=== PATIENT | female | born 1945 | race Two or more races ===

== ENCOUNTER 2017-10-19 08:55 | Outpatient (CLI) | payer OTHER ==
[~2017-10-19 08:55] MED LIST: NEXIUM20 MG/PACK PO
== END 2017-10-19 09:16 | disposition home or self-care (01) ==
LOC: RAD 501 08:55
DX: M25.561 Pain in right knee (principal); M25.562 Pain in left knee

== ENCOUNTER 2018-06-04 16:20 | Emergency (ER) | payer OTHER ==
[~2018-06-04] VITALS: Ht 162.6 cm; Wt 61.2 kg
[2018-06-04] MEDS ORDERED: CRESTOR5 MG (16:41)
== END 2018-06-04 22:15 | disposition home or self-care (01) ==
LOC: ER 16:20
DX: R10.11 Right upper quadrant pain (principal); M54.5 Low back pain